=== PATIENT | male | born 1975 | race Caucasian/White ===

== ENCOUNTER 2020-05-02 13:06 | Outpatient (CLI) | payer OTHER, SELFPAY ==
[2020-05-02 13:33] LABS: Basophils Absolute Auto 0.1 K/mm3 (0.0-0.1); Basophils Percent Auto 1.2 % (0.2-1.2); Eosinophils Absolute Auto 0.2 K/mm3 (0-0.3); Hematocrit 49.5 % (42.0-52.0); Hemoglobin 16.5 g/dL (14.0-18.0); Immature Granulocyte Absolute 0.01 K/mm3 (0.00-0.031); Immature Granulocyte Percent A 0.2 % (0-0.5); Lymphocytes Absolute Auto 1.39 K/mm3 (0.9-3.2); Lymphocytes Percent Auto 23.3 % (18.3-44.2); Mean Corpuscular HGB Conc 33.3 g/dl (32-36); Mean Corpuscular Hemoglobin 28.3 pg (26-34); Mean Corpuscular Volume 84.8 fl (80-100); Mean Platelet Volume 10.6 fl (7.4-10.4); Monocytes Absolute Auto 0.4 K/mm3 (0.1-0.6); Monocytes Percent Auto 6.5 % (2.6-8.5); Neutrophils Absolute Auto 3.9 K/mm3 (1.3-6.7); Neutrophils Percent Auto 65.8 % (45.5-73.1); Platelet Count Result 195 k/mm3 (150-375); Red Blood Count 5.84 M/mm3 (4.6-6.20); Red Cell Distribution Width 13.7 % (11.5-14.5)
[2020-05-02 13:46] LABS: Alanine Aminotransferase 32 U/L (4-50); Albumin Level 4.5 g/dL (3.5-5.1); Alkaline Phosphatase 89 U/L (38-126); Anion Gap 7 mmol/L (8-16); Aspartate Amino Transferase 24 U/L (17-59); Bilirubin,Total 0.6 mg/dL (0.2-1.3); Blood Urea Nitrogen 16 mg/dL (9-20); Calcium 9.5 mg/dL (8.4-10.2); Carbon Dioxide 32 mmol/L (22-30); Chloride 102 mmol/L (98-107); Cholesterol 155 mg/dL (0-200); Estimated Glomerular Filt Rate > 60; Glucose 102 mg/dL (75-110); HDL Direct 31 mg/dL; Potassium 4.5 mmol/L (3.4-5.0); Sodium 141 mmol/L (137-145); Triglycerides 147 mg/dL (<150)
[2020-05-02 13:52] LABS: Rheumatoid Factor < 8.6 IU/ML (<12)
[2020-05-02 13:55] LABS: LDL Cholesterol Direct 104 mg/dL
== END 2020-05-02 13:07 | disposition home or self-care (01) ==
PROVIDERS: PCP Internal Medicine; Visit Provider Nurse Practitioner
DX: Z13.29 Encounter for screening for other suspected endocrine disorder (principal); Z13.220 Encounter for screening for lipoid disorders; M25.531 Pain in right wrist; M25.532 Pain in left wrist
CPT/HCPCS: 36415; 80053; 80061; 85025; 86038; 86140; 86430

== ENCOUNTER 2020-05-26 07:42 | Outpatient (CLI) | payer OTHER, SELFPAY ==
--- NOTE | ~2020-05-26 | US_ITS ---
EXAMINATION: US scrotum doppler DATE: 05/26/2020 08:44 INDICATION: Right testicular pain. TECHNIQUE: Grayscale and Doppler ultrasound images of the testes were obtained. COMPARISON: None. FINDINGS: The right testis measures 5.7 x 3.2 x 3.4 cm. The left testis measures 4.2 x 2.6 x 2.0 cm. The left testis is diffusely heterogeneous and hypoechoic. Vascular flow is normal in right testis. F low is present in the left testis, but decreased relative to the right. The right epididymis is oriana l with normal vascular flow. The left epididymis is normal with normal vascular flow. There is no hyd rocele. There are bilateral varicoceles. IMPRESSION: 1. Atrophic left testis. 2. Bilateral varicoceles. Reviewed, dictated and finalized at location A. AGE REPORTER
== END 2020-05-26 07:43 | disposition home or self-care (01) ==
PROVIDERS: PCP Internal Medicine; Visit Provider Internal Medicine
DX: I83.813 Varicose veins of bilateral lower extremities with pain (principal); N50.0 Atrophy of testis
CPT/HCPCS: 76870; 93976